=== PATIENT | male | born 1950 | race Caucasian/White ===

== ENCOUNTER → 2023-08-22 | Outpatient (CLI) | payer OTHER ==
[2023-08-22 14:28] LABS: CREATININE 1.9 mg/dL (0.5-1.5); POTASSIUM 5.9 mmol/L (3.5-5.1)
== END | disposition home or self-care (01) ==
LOC: LAB 13:45
PROVIDERS: ATTEND Internal Medicine Cardiovascular Disease
DX: I65.23 Occlusion and stenosis of bilateral carotid arteries (principal)
CPT/HCPCS: 36415; 80048

== ENCOUNTER → 2023-08-27 | Outpatient (CLI) | payer OTHER ==
[~2023-08-27] MED LIST: IOHEXOL-350 75 ML VIAL IV ONE
== END | disposition home or self-care (01) ==
LOC: RAH 08:55
PROVIDERS: ATTEND Internal Medicine Cardiovascular Disease
DX: I65.23 Occlusion and stenosis of bilateral carotid arteries (principal); I70.90 Unspecified atherosclerosis
CPT/HCPCS: 70498; Q9967

== ENCOUNTER → 2024-05-28 | Outpatient (CLI) | payer OTHER ==
[~2024-05-28] MED LIST changes: +AEC81 PO; +CARB1TAB35 PO; +CLOP75TA32 PO; +DULO20CA18 PO; -IOHEXOL-350 75 ML VIAL IV ONE; +MIRT-93 PO; +ROSU40TA88 PO
== END | disposition home or self-care (01) ==
LOC: RAH 14:13
PROVIDERS: ATTEND Family Medicine
DX: K80.20 Calculus of gallbladder without cholecystitis without obstruction (principal); J43.9 Emphysema, unspecified; I70.0 Atherosclerosis of aorta; N40.0 Benign prostatic hyperplasia without lower urinary tract symptoms; M43.8X6 Other specified deforming dorsopathies, lumbar region; R63.4 Abnormal weight loss; E44.0 Moderate protein-calorie malnutrition; Z87.891 Personal history of nicotine dependence
CPT/HCPCS: 71250; 74176

== ENCOUNTER → 2024-07-15 | Outpatient (CLI) | payer OTHER ==
[2024-07-15 15:54] LABS: CREATININE 2.1 mg/dL (0.5-1.3)
== END | disposition home or self-care (01) ==
LOC: LAB 14:36
PROVIDERS: ATTEND Internal Medicine
DX: R19.7 Diarrhea, unspecified (principal); R63.4 Abnormal weight loss
CPT/HCPCS: 36415; 82565; 84520

== ENCOUNTER → 2024-07-22 | Outpatient (CLI) | payer OTHER ==
[~2024-07-22] MED LIST changes: +IOHEXOL-350 75 ML VIAL IV ONE
--- NOTE | 2024-07-22 12:29 | HMCIMG ---
CT ABDOMEN/PELVIS W/WO CONTRAS REASON: DIARRHEA COMPARISON: 05/28/2024. TECHNIQUE: Images are obtained from lung bases to the symphysis pubis before and after IV contrast. Contrast volume was 60 cc Omnipaque 350. Oral contrast was administered as well. FINDINGS: Lung bases are clear. There are no focal liver lesions. There are normal-appearing kidneys.. Spleen and pancreas appear unremarkable. There are small stones present in an otherwise normal appearing gallbladder. Intrahepatic biliary tree does not appear distended. Large amount solid fecal material is noted throughout the colon Bowel loops appear unremarkable. This includes normal appearance of the appendix There is no evidence of free fluid or intraperitoneal air. There are no focal fluid collections. Aorta and retroperitoneum appear normal. There is no retroperitoneal or pelvic lymphadenopathy. Prostate is enlarged with axial dimension and 4.6 x 5.6 cm, sagittal dimension 5.5 cm. Urinary bladder appears normal and does not appear thick-walled. The anterior abdominal wall is intact. Osseous structures appear unremarkable. IMPRESSION: 1. No acute finding in the abdomen or pelvis. 2. Mildly enlarged prostate 3. Large amount solid fecal material in the colon consistent with constipation. CT was performed with one or more following dose reduction techniques: automated exposure control, adjustment of the mA and kv according to patient's size, or use of a iterative reconstruction technique.
== END | disposition home or self-care (01) ==
LOC: RAH 10:00
PROVIDERS: ATTEND Internal Medicine
DX: N40.0 Benign prostatic hyperplasia without lower urinary tract symptoms (principal); R19.7 Diarrhea, unspecified; R63.4 Abnormal weight loss
CPT/HCPCS: 74178; Q9967

== ENCOUNTER 2025-08-01 15:55 | Emergency (ER) | payer OTHER ==
[~2025-08-01] VITALS: Ht 172.7 cm; Wt 52.6 kg
[~2025-08-01 15:55] MED LIST changes: -IOHEXOL-350 75 ML VIAL IV ONE
[2025-08-01 16:35] LABS: IMMATURE GRANULOCYTE ABSOLUTE 0.05 K/uL (0-1); NUCLEATED RED BLOOD CELLS 0.0 % (0.0-0.19); PLATELET COUNT (AUTO) 124 K/uL (130-400); RED BLOOD CELL COUNT(AUTO) 4.32 MIL/uL (4.50-6.20); RED CELL DISTRIBUTION WIDTH 14.4 % (11.0-15.5); WHITE BLOOD COUNT (AUTO) 7.4 K/uL (4.8-10.8)
[2025-08-01 16:57] LABS: CREATININE 1.6 mg/dL (0.5-1.3); GLOMERULAR FILTR. RATE CALC 45.0 mL/min (>90); GLUCOSE,RANDOM 100.0 mg/dL (70-105); SODIUM SERUM 136.0 mmol/L (136-145); UREA NITROGEN, BLOOD 34.0 mg/dL (7-18)
--- NOTE | 2025-08-01 17:01 | EKG ---
[facility] Test Date: 2025-08-01 Test Time: 16:55:30 Pat Name: TOMER TORRES Department: ED Room: Gender: M Dial Mounter: [id number] : 1950 Requested By: GEORGIE SETHI Order Number: [id number] Reading MD: Heriberto Grijalva Measurements Intervals [place] Rate: 70 P: 79 MI: 179 QRS: -79 QRSD: 150 T: 90 QT: 446 QTc: 482 Interpretive Statements Atrial-sensed ventricular-paced rhythm Compared to ECG 09/06/2023 12:03:25 No significant changes Electronically Signed On 08-02-2025 21:50:05 HEARING AID SPECIALIST by Heriberto Grijalva Please click the below link to view image of tracing.
[2025-08-01 17:03] LABS: CREATINE KINASE, TOTAL 34.0 U/L (21-232)
[2025-08-01] MEDS: 0.9%NACL 1000ML 1,000 ML IV ONE (17:07)
--- NOTE | 2025-08-01 17:08 | HMCIMG ---
EXAM: CT Abdomen and Pelvis Without IV contrast CLINICAL HISTORY: right flank pain TECHNIQUE: Axial computed tomography images of the abdomen and pelvis without intravenous contrast. CONTRAST: No IV contrast. COMPARISON: None provided. FINDINGS: LUNG BASES: Emphysema. LIVER: Unremarkable. GALLBLADDER AND BILE DUCTS: Cholelithiasis. PANCREAS: Multiple calcifications throughout pancreas could be the sequela of chronic pancreatitis. 3.8 cm cystic lesion adjacent to pancreatic tail. Nonemergent MRI recommended further evaluation. SPLEEN: Unremarkable. ADRENAL GLANDS: Unremarkable. KIDNEYS, URETERS, AND BLADDER: Bilateral nonobstructive calculi of the kidneys. STOMACH AND BOWEL: Large amount of colonic stool. APPENDIX: No evidence of acute appendicitis on CT examination. PERITONEUM: No free fluid. No free air. LYMPH NODES: No lymphadenopathy is evident. REPRODUCTIVE: Unremarkable as visualized. VASCULATURE: No evidence of abdominal aortic aneurysm. BONES: Status post kyphoplasty of L1. MISCELLANEOUS: Prostamegaly. IMPRESSION: 1. Cholelithiasis and bilateral nonobstructive renal calculi. 2. 3.8 cm cystic lesion adjacent to pancreatic tail. Nonemergent MRI recommended for further evaluation. 3. Multiple pancreatic calcifications, possibly due to chronic pancreatitis. /[place]
[2025-08-01 17:37] LABS: GLUCOSE, URINE (UA) NEGATIVE (NEGATIVE); LEUKOCYTE ESTERASE ,URINE 500 Leu/uL (NEGATIVE); NITRATE,URINE 1+ (NEGATIVE); OCCULT BLOOD,URINE SMALL (NEGATIVE)
[2025-08-01 17:38] LABS: ADD UA MICROSCOPIC YES; APPEARANCE,URINE HAZY (CLEAR)
[2025-08-01 17:41] LABS: WBC CLUMP RARE /HPF (0-1)
--- NOTE | 2025-08-01 17:58 | HMCIMG ---
EXAM: Chest radiograph 1 view HISTORY: Weakness COMPARISON: None FINDINGS: No pulmonary consolidations. Chronic interstitial changes. No pleural effusion or pneumothorax. Normal cardiac silhouette. Tortuous aorta. No overt congestion. Left sided rib fractures of unknown chronicity. Cardiac device in place. IMPRESSION: Probable chronic lung disease. Left-sided rib fractures of unknown chronicity. /[place]
[2025-08-01 18:29] VITALS: TEMP 97.6
[2025-08-01] MEDS ORDERED: CEPH500B PO (20:18)
--- NOTE | 2025-08-01 20:18 | ERN ---
ED Note History of Present Illness Stated Complaint: ABNORMAL WBC's Chief Complaint: Abnormal Labs Time Seen by MD: 16:02 Time Seen by Midlevel: 16:02 Dictation: The patient is a 75-year-old male with a history of Parkinson's, permanent pacemaker, chronic back pain who presents to the emergency department after being sent by the [place] clinic for elevated WBCs. Patient reports since it is Sunday he has been having some painful urination, patient also reports right flank pain but reports that that is chronic due to his back problems. Denies any nausea or vomiting, denies any diarrhea. Patient denies any current fevers. Allergies: Coded Allergies: No Known Allergies (Unverified Allergy, Unknown, 07/17/23) Home Meds Active Scripts Aspirin (ASPIRIN 81 MG ECTAB) 81 Mg Ectab, 81 MG PO DAILY, #30 TAB.EC 0 Refills Prov:KISHAN KIM MD 09/12/23 Reported Medications Mirtazapine (Mirtazapine) 30 Mg Tablet, 30 MG PO HS, TAB 09/06/23 Duloxetine HCl (Duloxetine HCl) 20 Mg Capsule.dr, 40 MG PO BID, CAP 09/06/23 Clopidogrel Bisulfate (Clopidogrel) 75 Mg Tablet, 75 MG PO AM, TAB 09/06/23 Carbidopa/Levodopa (Carbidopa-Levodopa 25-100 Tab) 25 Mg-100 Mg Tablet, 2 EACH PO TID, TAB 09/06/23 Rosuvastatin Calcium (Rosuvastatin Calcium) 40 Mg Tablet, 40 MG PO AM, TAB 09/06/23 Past Medical History Past Medical History: Depression, High Cholesterol, Hypertension, Renal Disese Additional Past Medical Hx: PARKINSONS Surgical History: Other Surgical History Other: HAND, BACK, ANKLE RN Note Reviewed/Agreed w/PFSH: Yes Review of System Dictation Constitutional: Negative for fever,chills, and weight loss Eyes: Negative for injury, pain,redness, and discharge ENT: Negative for injury,pain or swelling Cardiovascular: Negative for chest pain, palpitations, and edema Respiratory: Negative for shortness of breath, cough, and wheezing, Abdomen/GI: Negative for abdominal pain, nausea, vomiting, diarrhea, and constipation Back: Negative for injury and pain : Positive for painful urination MS/Extremity: Negative for injury and deformity Skin: Negative for rash, and discoloration Neuro: Negative for headache, weakness, numbness, tingling, and seizure Psych: Negative for suicide ideation, homicidal ideation, and hallucinations Initial Vital Sign VS Vital Signs Date Time Temp Pulse Resp B/P (MAP) Pulse Ox O2 Delivery O2 Flow Rate FiO2 08/01/25 15:59 98.2 78 20 155/90 99 Room Air 0 08/01/25 17:27 21 Physical Exam Dictation Vital Signs reviewed General Appearance: Alert, oriented x 3, no acute distress, well developed, nourished. Head and Face: non-traumatic. Eyes: PERRL, pink conjunctivas, eyelid no trauma, anterior chamber with arcus senilis. Ears: Pinnas intact and no signs of trauma or erythema ear canals clear and no discharge TM no erythema Nose: No discharge, no bleeding. Oropharynx: Mouth normal, tongue pink. pharynx clear,no erythema, tonsils no exudates, no abscesses noted, mucous membrane moist Neck: Supple, non-tender, no thyromegaly, no masses, no JVD, no bruits Breast:Deferred Chest:No tenderness, no crepitus, no paradoxical movement, no retractions Lungs:Clear, well-ventilated, symmetric, no rales, no wheezing, no rhonchi, no stridor, good breath sounds bilaterally Heart: Regular rate, regular rhythm, no murmur, no gallops Vascular: no peripheral edema, Abdomen: Soft, positive bowel sounds, nondistended, no guarding, nontender, no rebound, no masses no hepatomegaly, no splenomegaly, no Badillo's sign, no hernias. Rectal: Deferred Genital: Deferred Neurological: Normal speech, motor function intact, sensory function intact Musculoskeletal: Neck nontender, full range of motion, back nontender, full range of motion, Extremities: nontender, full range of motion Skin: Color pink, dry, no turgor, no rash, no lacerations, no abrasions, no contusions. Lymphatic: Deferred Results (Laboratory/Radiology) Laboratory/Radiology Laboratory Tests Test 08/01/25 16:24 08/01/25 17:13 White Blood Count 7.4 K/uL (4.8-10.8) Red Blood Count 4.32 MIL/uL (4.50-6.20) L Hemoglobin 12.4 g/dL (14.0-18.0) L Hematocrit 38.4 % (42-54) L Mean Corpuscular Volume 88.9 fL (79-99) Mean Corpuscular Hemoglobin 28.7 pg (27.0-33.0) Mean Corpuscular Hemoglobin Concent 32.3 g/dL (32.0-36.0) Red Cell Distribution Width 14.4 % (11.0-15.5) Platelet Count 124 K/uL (130-400) L Mean Platelet Volume 10.3 fL (7.5-10.5) Immature Granulocyte % (Auto) 0.7 % (0-1) Neutrophils (%) (Auto) 78.1 % (40.0-77.0) H Lymphocytes (%) (Auto) 10.1 % (21.0-51.0) L Monocytes (%) (Auto) 8.3 % (3.0-13.0) Eosinophils (%) (Auto) 2.4 % (0.0-8.0) Basophils (%) (Auto) 0.4 % (0.0-5.0) Neutrophils # (Auto) 5.7 K/uL (1.8-7.7) Lymphocytes # (Auto) 0.7 K/uL (1.0-4.8) L Monocytes # (Auto) 0.6 K/uL (0.1-1.0) Eosinophils # (Auto) 0.18 K/uL (0.00-0.70) Basophils # (Auto) 0.03 K/uL (0.00-0.20) Absolute Immature Granulocyte (auto 0.05 K/uL (0-1) Nucleated Red Blood Cells 0.0 % (0.0-0.19) Sodium Level 136 mmol/L (136-145) Potassium Level 3.3 mmol/L (3.5-5.1) L Chloride Level 103 mmol/L (101-111) Carbon Dioxide Level 25 mmol/L (21-32) Blood Urea Nitrogen 34 mg/dL (7-18) H Creatinine 1.6 mg/dL (0.5-1.3) H Glomerular Filtration Rate Calc 45 mL/min (>90) Random Glucose 100 mg/dL (70-105) Lactic Acid Level 1.4 mmol/L (0.8-2.5) Total Calcium 8.1 mg/dL (8.5-10.1) L Total Creatine Kinase 34 U/L (21-232) Troponin I High Sensitivity 10 ng/L (4-75) Urine Color YELLOW (YELLOW) Urine Appearance HAZY (CLEAR) Urine pH 5.5 (5.0-8.0) Urine Specific [place] 1.015 (1.001-1.031) Urine Protein 20 mg/dL (NEGATIVE) H Urine Glucose (UA) NEGATIVE mg/dL (NEGATIVE) Urine Ketones 10 mg/dL (NEGATIVE) H Urine Occult Blood SMALL (NEGATIVE) H Urine Nitrate 1+ (NEGATIVE) H Urine Bilirubin NEGATIVE mg/dL (NEGATIVE) Urine Urobilinogen 0.2 mg/dL (0.2-1.0) Urine Leukocyte Esterase 500 [place]/uL (NEGATIVE) H Urine RBC 2-5 /HPF (0-1) H Urine WBC TNTC /HPF (0-1) H Urine WBC Clumps (Auto) RARE /HPF (0-1) Urine Bacteria FEW /HPF (None Seen) REASON: right flank pain ORDERING PHYSICIAN: GEORGIE SETHI PROCEDURE: ABD PEL WO - CT ABDOMEN/PELVIS W/O CONTRAST EXAM: CT Abdomen and Pelvis Without IV contrast CLINICAL HISTORY: right flank pain TECHNIQUE: Axial computed tomography images of the abdomen and pelvis without intravenous contrast. CONTRAST: No IV contrast. COMPARISON: None provided. FINDINGS: LUNG BASES: Emphysema. LIVER: Unremarkable. GALLBLADDER AND BILE DUCTS: Cholelithiasis. PANCREAS: Multiple calcifications throughout pancreas could be the sequela of chronic pancreatitis. 3.8 cm cystic lesion adjacent to pancreatic tail. Nonemergent MRI recommended further evaluation. SPLEEN: Unremarkable. ADRENAL GLANDS: Unremarkable. KIDNEYS, URETERS, AND BLADDER: Bilateral nonobstructive calculi of the kidneys. STOMACH AND BOWEL: Large amount of colonic stool. APPENDIX: No evidence of acute appendicitis on CT examination. PERITONEUM: No free fluid. No free air. LYMPH NODES: No lymphadenopathy is evident. REPRODUCTIVE: Unremarkable as visualized. VASCULATURE: No evidence of abdominal aortic aneurysm. BONES: Status post kyphoplasty of L1. MISCELLANEOUS: Prostamegaly. IMPRESSION: 1. Cholelithiasis and bilateral nonobstructive renal calculi. 2. 3.8 cm cystic lesion adjacent to pancreatic tail. Nonemergent MRI recommended for further evaluation. 3. Multiple pancreatic calcifications, possibly due to chronic pancreatitis. /[place] REASON: weakness ORDERING PHYSICIAN: GEORGIE SETHI PROCEDURE: CXR1VW - CHEST 1VW EXAM: Chest radiograph 1 view HISTORY: Weakness COMPARISON: None FINDINGS: No pulmonary consolidations. Chronic interstitial changes. No pleural effusion or pneumothorax. Normal cardiac silhouette. Tortuous aorta. No overt congestion. Left sided rib fractures of unknown chronicity. Cardiac device in place. IMPRESSION: Probable chronic lung disease. Left-sided rib fractures of unknown chronicity. /[place] Labs Reviewed?: Yes EKG: (+) rhythm (Atrial ventricular paced rhythm) EKG Comment: Date:08/01/2025 Time:5 Ventricular rate:70 VT interval:179 QRS duration:150 QT/QTc:446/482 EKG interpretation: Atrial sensed ventricular paced rhythm Reviewed by ED Attending no STEMI ED Course ED Course Orders Procedure Category Date Status Time Cbc With Differential LAB 08/01/25 Complete 16:15 Troponin I High LAB 08/01/25 Complete Sensitivity 16:15 Urinalysis Profile LAB 08/01/25 Complete 16:15 12 Lead Ekg Tracing- EKG 08/01/25 Complete Technical 16:15 0.9%Nacl 1000ml (Ns PHA 08/01/25 Complete 1000ml) 16:30 Creatine Kinase, Total LAB 08/01/25 Complete 16:15 Chest 1vw RAD 08/01/25 Resulted 16:15 Basic Metabolic Panel LAB 08/01/25 Complete 16:15 Lactic Acid LAB 08/01/25 Complete 16:15 Blood Cult MAGGI 08/01/25 In Process 16:15 Ct Abdomen/Pelvis W/O CT 08/01/25 Resulted Contrast 16:17 Culture Urine MAGGI 08/01/25 In Process 17:38 Potassium Bicarb/Cit PHA 08/01/25 Complete Ac 25meq (K-Lyte Ta 18:30 Ceftriaxone 1g Vial PHA 08/01/25 Complete (Rocephine 1g Inj) 18:30 Current Medications Medications (Trade) Dose Ordered Sig/Fadi Route PRN Reason Start Time Stop Time Status Last Admin Dose Admin Ceftriaxone Sodium (ROCEphine 1G INJ) 1 gm ONCE ONCE IVPB 08/01/25 18:30 08/01/25 18:31 DC 08/01/25 18:33 Potassium Bicarbonate (K-Lyte Tablet Eff 25 Meq Tablet.eff) 25 meq ONCE ONCE PO 08/01/25 18:30 08/01/25 18:31 DC 08/01/25 18:33 Sodium Chloride 1,000 ml @ 0 mls/hr ONCE ONCE IV 08/01/25 16:30 08/01/25 16:31 DC 08/01/25 17:07 Vital Signs Date Time Temp Pulse Resp B/P (MAP) Pulse Ox O2 Delivery O2 Flow Rate FiO2 08/01/25 18:29 97.5 64 17 163/75 99 Room Air* 0 21 08/01/25 17:27 97.3 68 18 161/83 100 Room Air* 0 21 08/01/25 15:59 98.2 78 20 155/90 99 Room Air 0 Medical Decision Making MDM The patient is a 75-year-old male with a history of Parkinson's, permanent pacemaker, chronic back pain who presents to the emergency department after being sent by the [place] clinic for elevated WBCs. Patient reports since it is Sunday he has been having some painful urination, patient also reports right flank pain but reports that that is chronic due to his back problems. Denies any nausea or vomiting, denies any diarrhea. Patient denies any current fevers. CBC showed no leukocytosis, mild normocytic anemia, thrombocytopenia, chemistry showed creatinine of 1.6 which is similar from previous visits, mild hypokalemia, urinalysis positive for leukocyte esterase and nitrites. CT abdomen and pelvis showed chronic pancreatitis, nonobstructed kidney stones bilaterally. Chest x-ray showed chronic lung disease. Labs and imaging discussed with the patient who at this time feels well enough to go home with the antibiotics for UTI. Patient with no nausea or vomiting, no abdominal pain. No chest pain or shortness of breath. On physical exam patient is in no acute distress, nontoxic appearance, stable vital signs. Patient instructed to follow up with PCP in 1-2 days. And to return if symptoms worsen. Differential diagnosis: Sepsis, UTI, pyelonephritis, kidney stones Need for hospitalization: Patient does not meet criteria for hospitalization. There are no social concerns with this patient. DX & DISP Disposition: Discharge Departure Impression: Primary Impression: UTI (urinary tract infection) Additional Impressions: Chronic back pain, Hypokalemia, Lesion of pancreas Condition: Stable Scripts Cephalexin Monohydrate (Keflex) 500 Mg Cap 500 MG PO BID for 7 Days, #14 CAP Prov: GEORGIE SETHI 08/01/25 Additional Instructions: Your lab work showed showed you have a urinary tract infection. Your CT scan shows some abnormalities of your pancreas and you will need to follow up with the your primary doctor for further nonemergent imaging. Please follow up with your primary doctor in 1-2 days. Take your antibiotics as prescribed. If you develop fevers, nausea or vomiting or if symptoms worsen please return to ER. FOLLOW-UP WITH PRIMARY CARE PROVIDER IN 1 TO 2 DAYS. TAKE MEDICATIONS DIRECTED HERE IN THE EMERGENCY ROOM. OKAY TO CONTINUE HOME MEDICATIONS UNLESS OTHERWISE DISCUSSED DURING YOUR VISIT IN THE EMERGENCY ROOM TODAY. RETURN TO YOUR NEAREST EMERGENCY ROOM IF SYMPTOMS WORSEN OR IF THERE IS NO IMPROVEMENT. CALL 911 IF YOU NEED IMMEDIATE ASSISTANCE. TAKE TYLENOL [id number] N EEDED AND IF NO CONTRAINDICATIONS ARE PRESENT. INCREASE ORAL HYDRATION. A WOUND CULTURE OR URINE CULTURE WAS ORDERED HERE IN THE EMERGENCY ROOM DEPARTMENT PLEASE FOLLOW-UP WITH PRIMARY CARE PROVIDER AND ADVISE THEM TO GET REPEAT PORTS FROM OUR FACILITY. IF YOU HAD ANY YAMINI WRAP/SPLINTS THAT WERE APPLIED HERE, PLEASE DO NOT REMOVE THEM UNTIL YOU SEE YOUR PRIMARY CARE OR SPECIALTY. Referrals: ARAVIND ALVARADO M.D. (PCP) Time of Disposition: 20:15 I have reviewed the case, and I agree with, Diagnosis and Plan GEORGIE SETHI Aug 01, 2025 20:18
[2025-08-01 20:58] VITALS: BP 157/73; PULSE 67; RESP 18; O2SAT 99
== END 2025-08-01 21:04 | disposition home or self-care (01) ==
LOC: EDH 15:55
DX: N39.0 Urinary tract infection, site not specified (principal); G89.29 Other chronic pain; M54.9 Dorsalgia, unspecified; E87.6 Hypokalemia; E78.00 Pure hypercholesterolemia, unspecified; F32.A Depression, unspecified; I10 Essential (primary) hypertension; G20.A1 Parkinson's disease without dyskinesia, without mention of fluctuations; Z79.82 Long term (current) use of aspirin; Z95.0 Presence of cardiac pacemaker
CPT/HCPCS: 99285; 74176; 96374; 71045; 82550; 84484; 80048; 85025; 87040 ×2; 87086 ×2; 87186; 83605; 81001; 36415; 93005; J7030; J0696